=== PATIENT | female | born 1930 | race Caucasian/White ===

== ENCOUNTER 2019-06-10 21:04 | Emergency (ER) | payer MEDICARE, OTHER ==
[2019-06-10] MEDS ORDERED: Lidocaine 1% with EPINEPHrine 1:100,000 50 ML MDV SUBCUT ONE (21:08)
--- NOTE | 2019-06-10 21:15 | EDM.PDOC ---
ED HPI GENERAL MEDICAL PROBLEM - General Stated Complaint: MED[facility] Time Seen by Provider: 06/10/19 21:08 Source of Information: Reports: Patient History Limitations: Reports: No Limitations - History of Present Illness INITIAL COMMENTS - FREE TEXT/NARRATIVE: Alert 88 yo female presents to ER vis EMS due to bleeding left middle/long digit due to laceration after cutting on can or corn at 5pm this evening. Patient has been unable to get the bleeding to stop this evening. Patient has minimal to no pain. Patient is on a blood thinner - Related Data Allergies Allergy/AdvReac Type Severity Reaction Status Date / Time acetaminophen [From Tylenol] Allergy Bleeding Verified 06/10/19 21:11 codeine Allergy Cannot Verified 06/10/19 21:11 Remember tape Allergy Rash Uncoded 06/10/19 21:11 Home Meds: Home Meds Calcium Carbonate [Calcium] 600 mg PO DAILY 03/31/14 [History] Cholecalciferol (Vitamin D3) [Vitamin D3] 400 mg PO DAILY 03/31/14 [History] Diltiazem HCl [Dilt-XR] 120 mg PO DAILY 03/31/14 [History] Flaxseed Oil [Flax Oil] 1 cap PO DAILY 03/31/14 [History] Furosemide [Lasix] 40 mg PO BID 03/31/14 [History] Ibuprofen [Advil] 200 mg PO TID 03/31/14 [History] Losartan [Cozaar] 25 mg PO DAILY 03/31/14 [History] Lutein Extract/Zeaxanthin Ext [Lutein 15 MG Softgel] 1 cap PO DAILY 03/31/14 [ History] Metoprolol Tartrate 50 mg PO BID 03/31/14 [History] Multivitamin [Multi Vitamin Daily] 1 tab PO DAILY 03/31/14 [History] Nitroglycerin [Nitrostat] 0.4 mg SL ASDIRECTED 03/31/14 [History] Potassium Chloride 20 meq PO DAILY 03/31/14 [History] Warfarin Sliding Scale [Coumadin Sliding Scale] 5 mg PO DAILY 03/31/14 [History] Past Medical History HEENT History: Reports: Epistaxis Cardiovascular History: Reports: Afib, Heart Failure, High Cholesterol, Hypertension [employer] WORK[employer] History: Reports: Musculoskeletal History: Reports: Osteoarthritis - Infectious Disease History Infectious Disease History: Reports: Mumps - Past Surgical History HEENT Surgical History: Reports: Cataract Surgery, Other (See Below) Cardiovascular Surgical History: Reports: Coronary Artery Bypass Musculoskeletal Surgical History: Reports: Hip Replacement Review of Systems - Review of Systems Review Of Systems: ROS reveals no pertinent complaints other than HPI. ED EXAM, GENERAL - Physical Exam Exam: See Below Exam Limited By: No Limitations General Appearance: Alert Eye Exam: Bilateral Eye: EOMI Nose: Normal Inspection, Normal Mucosa Head: Atraumatic, Normocephalic Neck: Normal Inspection, Supple, Non-Tender, Full Range of Motion Respiratory/Chest: No Respiratory Distress, Normal Breath Sounds Cardiovascular: Normal Peripheral Pulses Extremities: Normal Inspection, Normal Range of Motion, Non-Tender, No Pedal Edema, Normal Capillary Refill, Other (laceration distal tip of left middle finger with oozing noted. ) Neurological: Alert, Oriented, CN II-XII Intact, Normal Cognition, Normal Gait, Normal Reflexes, No Motor/Sensory Deficits ED TRAUMA EXTREMITY PROCEDURES - Laceration/Wound Repair Left Distal Digit - 3rd (Middle) Appearance: Subcutaneous Distal NVT: Neuro & Vascular Intact Anesthetic Type: Digital Local Anesthesia - Lidocaine (Xylocaine): 1% with EPI Local Anesthetic Volume: 3cc Skin Prep: Chlorhexidine (Hibiciens), Saline Saline Irrigation (cc's): 50 Exploration/Debridement/Repair: In a Bloodless Field, Explored to Base Closed With: Sutures Suture Size: 5-0 # of Sutures: 3 Suture Type: Nylon Drain Placement: No Sterile Dressing Applied: Provider Tetanus Status Addressed: Yes Complications: No Course - Vital Signs Last Recorded V/S: Last Vital Signs Temp 36.9 C 06/10/19 21:19 Pulse 67 06/10/19 21:19 Resp 14 06/10/19 21:19 BP 113/81 06/10/19 21:19 Pulse Ox 95 06/10/19 21:19 - Orders/Labs/Meds Orders: Active Orders 24 hr Category Date Time Status Vaccines to be Administered [RC] PER UNIT ROUTINE Care 06/10/19 21:22 Active Meds: Medications Discontinued Medications Generic Name Dose Route Start Last Admin Trade Name Arthurq PRN Reason Stop Dose Admin Bacitracin 1 dose 06/10/19 21:26 Bacitracin Oint 1 Gm TOP 06/10/19 21:27 ONETIME ONE Bacitracin 1 dose 06/10/19 21:31 Bacitracin Oint 1 Gm TOP 06/10/19 21:32 ONETIME ONE Diphtheria/Tetanus/Acell Pertussis 0.5 ml 06/10/19 21:21 Adacel IM 06/10/19 21:22 .ONCE ONE Lidocaine/Epinephrine 10 ml 06/10/19 21:08 Xylocaine 1% With Epinephrine 1:100,000 SUBCUT 06/10/19 21:09 ONETIME ONE Departure - Departure Time of Disposition: 21:30 Disposition: Home, Self-Care 01 Clinical Impression: Laceration of finger of left hand - Discharge Information Instructions: Sutured Wound Care Referrals: Aquiles Malone MD [Primary Care Provider] - Additional Instructions: 1. KEEP LACERATION DRY AND CLEAN X 48 HOURS 2. AFTER 48 hours CLEANSE WOUND DAILY AND APPLY TOPICAL ANTIBIOTIC OINTMENT. 3. FOLLOW WOUND CARE INFORMATION GIVEN. 4. FOLLOW UP IN CLINIC IN 7-10 DAYS FOR RECHECK AND POSSIBLE SUTURE REMOVAL. 5. Return for repeat evaluation if increase, changes, new or worsen symptoms. Discharge Instructions Laceration (Cut) You were seen today for a laceration (cut). Your provider examined your laceration for any problems such a buried foreign body (like glass, a splinter, or gravel), or injury to blood vessels, tendons, and nerves. Your provider may have also rinsed and/or scrubbed your laceration to help prevent an infection. It may not be possible to find all problems with your laceration on the first visit; occasionally foreign bodies or a tendon injury can go undetected. Your laceration may have been closed in one of several ways: No closure: many wounds will heal just fine without closure. Stitches: regular stitches that require removal. Tono: skin tono are often used in the scalp/head. Wound adhesive (glue): skin glue can be used for certain lacerations and doesnt require removal. Wound strips (aka Butterfly bandages or steri-strips): these are bandages that help to close a wound. Absorbable stitches: dissolving stitches that go away on their own and usually dont require removal. A small percentage of wounds will develop an infection regardless of how well the wound is cared for. Antibiotics are generally not indicated to prevent an infection so are only given for a small number of high-risk wounds. Some lacerations are too high risk to close, and are left open to heal because closure can increase the likelihood that an infection will develop. Remember that all lacerations, no matter how expertly repaired, will cause scarring. We consider many factors, techniques, and materials, in our efforts to provide the best possible cosmetic outcome. - Problem List & Annotations (1) Laceration of finger of left hand SNOMED Code(s): 330614900 Code(s): S61.219A - LACERATION W/O FB OF UNSP FINGER W/O DAMAGE TO NAIL, INIT Status: Acute Current Visit: Yes - My Orders Last 24 Hours: My Active Orders 06/10/19 21:22 Vaccines to be Administered [RC] PER UNIT ROUTINE - Assessment/Plan Last 24 Hours: My Active Orders 06/10/19 21:22 Vaccines to be Administered [RC] PER UNIT ROUTINE
[2019-06-10] MEDS ORDERED: Diphtheria,Pertussis(Acell),Tetanus Vaccine 0.5 ML SDV IM ONE (21:21)
[2019-06-10 21:24] VITALS: BP 113/81; PULSE 67
[2019-06-10] MEDS ORDERED: Bacitracin Oint 1 GM U/D Packet TOP ONE ×2 (21:26→21:31)
== END 2019-06-10 22:11 | disposition home or self-care (01) ==
LOC: JP.ED 21:04
DX: S61.213A Laceration without foreign body of left middle finger without damage to nail, initial encounter (principal); I11.0 Hypertensive heart disease with heart failure; I50.9 Heart failure, unspecified; I48.91 Unspecified atrial fibrillation; Z88.6 Allergy status to analgesic agent; Z88.5 Allergy status to narcotic agent; Z91.048 Other nonmedicinal substance allergy status; Z79.899 Other long term (current) drug therapy; Z79.01 Long term (current) use of anticoagulants; Z23 Encounter for immunization; W26.8XXA Contact with other sharp object(s), not elsewhere classified, initial encounter; Y93.G1 Activity, food preparation and clean up
CPT/HCPCS: 12001; 90471; 90715; 99282; 99282-25